=== PATIENT | female | born 1955 | race Caucasian/White ===

== ENCOUNTER 2020-03-25 11:35 | Outpatient (CLI) | payer MEDICARE, OTHER, SELFPAY ==
--- NOTE | ~2020-03-25 | XR_ITS ---
XR lumbar spine 2-3V DATE: 03/25/2020 12:13 INDICATION: Fall. Back pain. TECHNIQUE: AP, lateral COMPARISON: None FINDINGS: Diffuse osteopenia. There is mild dextroscoliosis of the lumbar spine. There is multi-level degenerative disc disease, p rimarily and severely at L4-5. L5-S1 disc space is well preserved however. No fracture or bone destruction. The included lower thoracic pedicles and lumbar pedicles are intact . The sacroiliac joints appear normal. Status post right total hip replacement. Approximately 3.5 cm infrarenal abdominal aortic aneurysm. Extensive calcification of the abdominal a antonia and iliac arteries IMPRESSION: Severe degenerative disc disease at L4-5 Approximate 3.5 cm infrarenal abdominal aortic aneurysm Reviewed, dictated and finalized at location A.
--- NOTE | ~2020-03-25 | XR_ITS ---
XR pelvis 1-2V DATE: 03/25/2020 12:13 INDICATION: Patient fell 2 weeks ago. Left hip and low back pain TECHNIQUE: AP view COMPARISON: None FINDINGS: There is severe degenerative disc disease at L4-5 and L5-S1. Status post right total hip arthroplasty. Moderately severe left hip osteoarthritis. The pubic symphysis and sacroiliac joints appear intact. No pelvic fracture or bone destruction. No fracture, dislocation, avascular necrosis or bone destruction of the left hip. There is chondrocal cinosis of the left hip. There are arterial calcifications of the iliac and femoral arteries. IMPRESSION: Moderately severe left hip osteophyte is Chondrocalcinosis of left hip Status post right total hip arthroplasty Severe degenerative disc disease at L4-5 and L5-S1. Reviewed, dictated and finalized at location A.
[2020-03-25 12:18] LABS: Alanine Aminotransferase 21 U/L (4-35); Albumin Level 4.4 g/dL (3.5-5.1); Alkaline Phosphatase 177 U/L (38-126); Aspartate Amino Transferase 53 U/L (14-36); Bilirubin,Total 0.6 mg/dL (0.2-1.3); Blood Urea Nitrogen 9 mg/dL (7-17); Calcium 9.3 mg/dL (8.4-10.2); Carbon Dioxide 37 mmol/L (22-30); Chloride 95 mmol/L (98-107); Cholesterol 170 mg/dL (0-200); Estimated Glomerular Filt Rate > 60; Glucose 97 mg/dL (65-105); HDL Direct 94 mg/dL; Potassium 3.1 mmol/L (3.4-5.0); Sodium 138 mmol/L (137-145); Triglycerides 103 mg/dL (<150)
[2020-03-25 12:29] LABS: LDL Cholesterol Direct 42 mg/dL
[2020-03-25 12:45] LABS: Free T4 Free Thyroxine 0.97 ng/mL (0.78-2.19)
[2020-03-25 12:49] LABS: Basophils Absolute Auto 0.1 K/mm3 (0.0-0.1); Basophils Percent Auto 0.7 % (0.2-1.2); Eosinophils Absolute Auto 0.4 K/mm3 (0-0.3); Eosinophils Percent Auto 4.6 % (0-4.4); Hematocrit 40.6 % (37.0-47.0); Hemoglobin 13.8 g/dL (12.0-15.0); Immature Granulocyte Absolute 0.03 K/mm3 (0.00-0.031); Immature Granulocyte Percent A 0.4 % (0-0.5); Lymphocytes Absolute Auto 1.95 K/mm3 (0.9-3.2); Mean Corpuscular Hemoglobin 33.4 pg (26-34); Mean Corpuscular Volume 98.3 fl (80-100); Mean Platelet Volume 9.3 fl (7.4-10.4); Monocytes Absolute Auto 0.9 K/mm3 (0.1-0.6); Monocytes Percent Auto 11.6 % (2.6-8.5); Neutrophils Absolute Auto 4.8 K/mm3 (1.3-6.7); Neutrophils Percent Auto 58.7 % (45.5-73.1); Platelet Count Result 389 k/mm3 (150-375); Red Blood Count 4.13 M/mm3 (4.2-5.4); White Blood Count 8.1 K/mm3 (4.5-10.0)
== END 2020-03-25 11:36 | disposition home or self-care (01) ==
PROVIDERS: PCP Internal Medicine; Visit Provider Internal Medicine
DX: I10 Essential (primary) hypertension (principal); E78.00 Pure hypercholesterolemia, unspecified; M54.5 Low back pain; M25.752 Osteophyte, left hip; M11.252 Other chondrocalcinosis, left hip; Z96.641 Presence of right artificial hip joint; M51.36 Other intervertebral disc degeneration, lumbar region; I71.4 Abdominal aortic aneurysm, without rupture
CPT/HCPCS: 36415; 72100; 72170; 80053; 80061; 84439; 84443; 85025

== ENCOUNTER 2020-04-01 07:58 | Outpatient (CLI) | payer MEDICARE, OTHER, SELFPAY ==
--- NOTE | ~2020-04-01 | US_ITS ---
EXAMINATION: US aorta DATE: 04/01/2020 09:05 CDT INDICATION: Abdominal aortic aneurysm TECHNIQUE: Grayscale, color Doppler, and pulsed Doppler images of the aorta and common iliac arteries were obtained. COMPARISON: None. FINDINGS: The proximal aorta measures 2.8 cm greatest sagittal dimension. The mid aorta measures 2.3 cm greates t sagittal dimension. The distal aorta measures 3 cm greatest sagittal dimension. The right common in ternal iliac artery measures 1.3 cm. The left common iliac artery measures 1.1 cm. IMPRESSION: 1. Fusiform infrarenal abdominal aortic aneurysm measuring 3 cm. Reviewed, dictated and finalized at location A.
== END 2020-04-01 07:59 | disposition home or self-care (01) ==
PROVIDERS: PCP Internal Medicine; Visit Provider Internal Medicine
DX: Z82.49 Family history of ischemic heart disease and other diseases of the circulatory system (principal); I71.4 Abdominal aortic aneurysm, without rupture
CPT/HCPCS: 76775

== ENCOUNTER 2020-06-06 11:58 | Emergency (ER) | payer MEDICARE, OTHER, SELFPAY ==
--- NOTE | ~2020-06-06 | XR_ITS ---
EXAMINATION: XR shoulder LT min 2V DATE: 06/06/2020 12:25 INDICATION: Left shoulder injury. TECHNIQUE: 4 views of left shoulder were obtained. COMPARISON: None. FINDINGS: There is a comminuted fracture of proximal left humerus. There is a nondisplaced fracture c omponent involving the greater tuberosity. At the surgical neck, the distal fracture fragment demonst rates impaction and 24 degrees varus attenuation. There is mild osteoarthrosis of glenohumeral joint and acromioclavicular joint. A calcified left lung nodule and calcified left hilar and mediastinal ly mph nodes are consistent with old granulomatous disease. IMPRESSION: 1. Comminuted two-part fracture of proximal left humerus. Reviewed, dictated and finalized at location A.
[2020-06-06 11:59] VITALS: BP 143/99; PULSE 97; RESP 20; TEMP 36.9; O2SAT 96
[2020-06-06] MEDS: MORPHINE SULFATE 4 MG/ML INJ IV PUSH (12:31)
--- NOTE | 2020-06-06 13:04 | ED.FALL ---
HPI - Fall General Chief Complaint: Fall Stated Complaint: FALL,L SHOULDER /ARM PAIN Time Seen by Provider: 06/06/20 11:59 History of Present Illness HPI Narrative: Patient is a 65-year-old female who presents ER with left shoulder pain. Reports she was walking from her bathroom to her bed when she tripped and fell. She not strike her head or lose consciousness. She fell on her left side injuring her left arm. She has pain with any type of range of motion at the shoulder. No new numbness or tingling. No other concerns. Related Data Home Medications Medication Instructions Recorded Confirmed Adult Multivitamin (w-lutein) 1 tab-cap PO DAILY 06/06/20 06/06/20 alprazolam 1 mg PO TID PRN 06/06/20 06/06/20 amlodipine-benazepril 1 cap PO DAILY 06/06/20 06/06/20 aspirin 1 tablet PO DAILY 06/06/20 06/06/20 atorvastatin 10 mg PO DAILY 06/06/20 06/06/20 benzonatate 100 mg PO TID PRN 06/06/20 06/06/20 citalopram 20 mg PO DAILY 06/06/20 06/06/20 Allergies Allergy/AdvReac Type Severity Reaction Status Date / Time erythromycin base Allergy Severe Hives / Verified 04/02/19 00:50 Red Face tetracycline Allergy Severe Hives / Verified 04/02/19 00:50 Red Face codeine Allergy Intermediate RASH AND Verified 04/02/19 00:50 ANXIETY. Penicillins Allergy Mild Unknown Verified 04/02/19 00:50 Review of Systems Constitutional: Constitutional: Denies chills, Denies fever(s) and Denies weakness Cardiovascular: Cardiovascular: Denies chest pain, Denies rapid heart rate and Denies radiating jaw, neck or arm pain Musculoskeletal: Musculoskeletal: Reports arthralgias and Reports joint swelling Neurologic: Denies syncope, Denies focal weakness and Denies numbness [facility] Past Medical History Medical History (Updated 06/06/20 @ 13:29 by Doc Marie MD) Anxiety COPD (chronic obstructive pulmonary disease) CVA (cerebral vascular accident) Depression Hypertension Lupus Osteopenia Surgical History Surgical History (Updated 06/06/20 @ 13:26 by Doc Marie MD) History of right hip replacement History of tonsillectomy Social History Social History (Updated 06/06/20 @ 13:27 by Doc Marie MD) Social History: History of tobacco abuse Exam Narrative: Exam Narrative: GENERAL: Well-appearing, well-nourished, and in no acute distress. HEAD: Normocephalic, atraumatic. ENT: Mucous membranes moist. CHEST: Clear to auscultation. No respiratory distress. HEART: Regular rate and rhythm. Normal peripheral pulses. EXTREMITIES: Focused exam left upper extremity reveals tenderness and swelling to the left shoulder region. No bruising. No tenderness at the elbow or wrist. Normal range of motion of the wrist and fingers. Neurovascular intact throughout the left upper extremity. SKIN: Warm, dry, no rash. NEURO: Alert and oriented x3. Course Course Emergency Course: Patient informed of results. Discussed with Dr. Schilling. Placed in shoulder immobilizer and follow-up in clinic. Vital Signs Vital signs: Vital Signs Temperature 98.5 F 06/06/20 11:59 Pulse Rate 97 06/06/20 11:59 Respiratory Rate 20 06/06/20 11:59 Blood Pressure 143/99 H 06/06/20 11:59 Pulse Oximetry 96 06/06/20 11:59 Temperature 98.5 F 06/06/20 11:59 Pulse Rate 97 06/06/20 11:59 Respiratory Rate 20 06/06/20 11:59 Blood Pressure 143/99 H 06/06/20 11:59 Pulse Oximetry 96 06/06/20 11:59 MDM - Fall Imaging Data Radiologist's impression: ITS Impressions Shoulder X-Ray 06/06/20 12:26 IMPRESSION: 1. Comminuted two-part fracture of proximal left humerus. Discharge Plan Discharge Clinical Impression: Fracture, humerus Patient Disposition: Home, Self-Care Condition: Stable Instructions: Arm Fracture in Adults (ED) Additional Instructions: Return the ER if you have chest pain or shortness of breath, cannot keep down food or water, you have fever over 100.4 ?F, you have
[2020-06-06 14:10] VITALS: BP 138/68; PULSE 80; RESP 20; O2SAT 99
== END 2020-06-06 14:12 | disposition home or self-care (01) ==
PROVIDERS: Emergency Provider Emergency Medicine; PCP Internal Medicine
DX: S42.222A 2-part displaced fracture of surgical neck of left humerus, initial encounter for closed fracture (principal); J44.9 Chronic obstructive pulmonary disease, unspecified; F41.9 Anxiety disorder, unspecified; F32.9 Major depressive disorder, single episode, unspecified; I10 Essential (primary) hypertension; Z86.73 Personal history of transient ischemic attack (TIA), and cerebral infarction without residual deficits; M85.80 Other specified disorders of bone density and structure, unspecified site; Z96.641 Presence of right artificial hip joint; W01.0XXA Fall on same level from slipping, tripping and stumbling without subsequent striking against object, initial encounter
CPT/HCPCS: 73030; 96374; 99284; A4565; J2270